=== PATIENT | female | born 1965 | race Caucasian/White ===

== ENCOUNTER 2017-04-19 00:19 | Emergency (ER) | payer OTHER ==
[2017-04-19 00:49] VITALS: TEMP 97.8; BMI 39.1
[2017-04-19] MEDS ORDERED: morphine CARPU-JECT 2 MG/1 ML DISP.SYRIN IVPUSH ONE (01:22)
[2017-04-19] MEDS ORDERED: morphine CARPU-JECT 4 MG/1 ML DISP.SYRIN ONE (01:36)
--- NOTE | 2017-04-19 01:41 | PDOC ---
History of Present Illness - General Chief Complaint: Pain Stated Complaint: PAIN Time Seen by Provider: 04/19/17 00:54 - History of Present Illness Initial Comments: 04/19/17 01:41 Patient is a 52 year old female with a history of asthma who presents with lower abdominal pain. She reports having mild abdominal cramping for several years, however over the past three weeks, it has been getting increasingly severe prompting her visit to the ED today. She reports that three weeks ago, she was seeing a sign out clerk and has been injecting herself with b12 shots in her abdomen. Since then she has been feeling increased bloating sensation and abdomen swelling as well as increased twisting/cramping pain in her lower abdomen spreading to her entire abdomen. Of note, she reports a history of a hysterectomy. She denies any nausea, vomiting, fevers, chills, chest pain, SOB , changes with urination, changes with bowel movements, and abnormal vaginal bleeding or discharge. Past History - Past Medical History Allergies/Adverse Reactions: Allergies Allergy/AdvReac Type Severity Reaction Status Date / Time Penicillins Allergy Verified 04/19/17 00:47 Home Medications: Ambulatory Orders Albuterol 0.083% Nebulizer Irasema [Ventolin 0.083% Nebulizer Soln -] 1 neb NEB Q6H PRN #1 box 11/06/13 Ibuprofen [Motrin -] 400 mg PO Q6H PRN #30 tablet 02/05/15 Albuterol Sulfate Inhaler - [Ventolin HFA Inhaler -] 1 - 2 inh PO DAILY Montelukast Na [Singulair -] 10 mg PO DAILY 11/07/16 Oxycodone HCl/Acetaminophen [Percocet 5-325 mg Tablet -] 1 combo PO Q6H PRN #8 tablet MDD 4 04/19/17 Anemia: No Asthma: Yes Cancer: No Cardiac Disorders: No CVA: No COPD: No CHF: No Dementia: No Diabetes: No GI Disorders: No Disorders: No HTN: No Hypercholesterolemia: No Liver Disease: No Psychiatric Problems: Yes (anxiety) Seizures: No Thyroid Disease: No - Surgical History Abdominal Surgery: No Appendectomy: No Cardiac Surgery: No Cholecystectomy: No Lung Surgery: No Neurologic Surgery: No Orthopedic Surgery: No - Immunization History Immunization Up to Date: Yes - Psycho/Social/Smoking Cessation Hx Anxiety: Yes Suicidal Ideation: No Smoking History: Never smoked Have you smoked in the past 12 months: No Number of Cigarettes Smoked Daily: 0 If you are a former smoker, when did you quit?: 9 YRS AGO Cigars Per Day: 0 Information on smoking cessation initiated: No Hx Alcohol Use: No Drug/Substance Use Hx: No Substance Use Type: None Hx Substance Use Treatment: No Review of Systems - Review of Systems Constitutional: No: Chills, Fever Respiratory: No: Cough, Shortness of Breath Cardiac (ROS): No: Chest Pain, Lightheadedness, Syncope ABD/GI: No: Constipated, Diarrhea, Nausea, Vomiting : No: Burning, Dysuria Integumentary: No: Rash Neurological: No: Headache, Tingling *Physical Exam - Vital Signs Last Vital Signs Temp Pulse Resp BP Pulse Ox 97.8 F 80 20 158/89 97 04/19/17 00:47 04/19/17 00:47 04/19/17 00:47 04/19/17 00:47 04/19/17 00:47 - Physical Exam Comments: 04/19/17 03:35 General Appearance: Nourished, and in Mild Distress HEENT: No Pharyngeal Erythema, Tonsillar Exudate, Tonsillar Erythema Respiratory/Chest: Lungs Clear, Normal Breath Sounds. No Crackles, Rales, Rhonchi, Wheezing Cardiovascular: Regular Rhythm, Regular Rate. No Murmur, Gallop/S3, Gallop/S4 Gastrointestinal/Abdominal: Normal Bowel Sounds, Soft, Tenderness to palpation in the lower abdomen worse in the LRQ and suprapubic region. Rebound noted on exam. No Hernia, Mass Integumentary: Normal Color, Dry, Warm Neurologic: Fully Oriented, Alert, Normal Mood/Affect, Normal Response ED Treatment Course - LABORATORY CBC & Chemistry Diagram: 04/19/17 01:46 04/19/17 01:46 Medical Decision Making - Medical Decision Making 04/19/17 03:37 Patient is a 52 year old female who presents with lower abdominal pain. Differential includes but is not limited to: Obstruction, illius, infectious, hernia, UTI, pylonephritis. We will obtain a set of labs including a cbc, cmp, UA, lipase. We will also get a ct abdomen pelvis to evaluate for pathology. 04/19/17 07:33 Patient's labs only show an elevated WBC to 12, but otherwise normal. CT abdomen preliminarily read by health administration teacher radiologist as large 17 x10 cm mass in the lower abdomen. 04/19/17 07:35 Patient signed out to Dr. Flowers. Pending admission vs. observation. Shoe Lay Out Planner consultation, US pelvis, CA125. *DC/Admit/Observation/Transfer Diagnosis at time of Disposition: Pelvic mass in female - Prescriptions Prescriptions: Oxycodone HCl/Acetaminophen [Percocet 5-325 mg Tablet -] 1 combo PO Q6H PRN #8 tablet MDD 4 PRN Reason: Pain - Referrals Referrals: Zach Rivas MD [Primary Care Provider] - Shaneka Simons MD [Staff Physician] - - Patient Instructions Additional Instructions: Please return to the ER if symptoms persist, worsen, or new symptoms arise. Please call Friday with Dr. Simons for follow up in her clinic. She will see you on Friday. Phone # is [phone]. - Attestations Physician Attestion: 04/19/17 18:57 I, Dr. Amadeo Jorgensen, attest that this document has been prepared under my direction and personally reviewed by me in its entirety. I further attest, that it accurately reflects all work, treatment, procedures and medical decision -making performed by me.
[2017-04-19 01:57] LABS: BASOPHIL 0.9 % (0-2.0); EOSINOPHIL 3.1 % (0-4.5); MCH 29.2 pg (25.7-33.7); MCHC 32.2 g/dl (32.0-36.0); MEAN CELL VOLUME 90.7 fl (80-96); MEAN PLT VOLUME 8.3 fl (7.5-11.1); NEUTROPHILS 69.4 % (42.8-82.8); PLATELET COUNT 304 K/MM3 (134-434); RDW 14.3 % (11.6-15.6); WHITE BLOOD COUNT 12.3 K/mm3 (4.0-10.0)
[2017-04-19 02:11] LABS: INR 1.04 (0.82-1.09); PROTHROMBIN TIME (PATIENT) 11.5 SEC (9.98-11.88)
[2017-04-19 02:24] LABS: AMYLASE 39 U/L (25-115)
[2017-04-19 02:28] LABS: ALBUMIN 3.5 g/dl (3.4-5.0); ALK PHOS 82 U/L (45-117); ANION GAP 8 (8-16); BILIRUBIN,TOTAL 0.3 mg/dL (0.2-1.0); CALCIUM 8.7 mg/dL (8.5-10.1); CO2 25 mmol/L (21-32); CREATININE 0.8 mg/dL (0.55-1.02); GLUCOSE,RANDOM 94 mg/dL (74-106); SGOT/AST 13 U/L (15-37); SGPT/ALT 11 U/L (12-78); TOT PROT 7.3 g/dl (6.4-8.2)
--- NOTE | 2017-04-19 06:42 | PDOC ---
Attending Attestation - Resident Resident Name: Amadeo Jorgensen - HPI HPI: 04/19/17 06:38 Pt comes with abdominal pain and swelling x 3 weeks. She states that 3 weeks ago she was placing vitamin B shots in her abdomen. She placed 6 shots over 6 days. However, she states that she has no fevers, no cellulitis, no diarrhea and no constipation. She has no pain after meals and she is able to eat normally without nausea or vomiting. Pt is not losing weight, rather gaining weight. She was told in the past that she has cystitis, and she complains of some burning on urination. - Physicial Exam PE: 04/19/17 06:40 Tense distended abdomen. Pain in all quadrants, primarily lower quadrants. Urinalysis pending - Medical Decision Making 04/19/17 06:41 Jyothi Alejandre Addendum: Apparently the patient has had a prior hysterectomy and therefore the previously mentioned pelvic mass suspected to represent a fibroid uterus therefore represents a large mass, suspicious for malignant neoplasm such as a sarcoma. THIS DOCUMENT HAS BEEN ELECTRONICALLY SIGNED Lloyd Wilburn MD 04/19/2017 06:29 SHARON Grimes Please call Imaging Legal Examiner [phone] ([phone]) with questions. PREVIOUS REPORT: Referring Physician : Sandra Stovall Patient Name: Jyothi Alejandre THIS IS A PRELIMINARYREPORT FROM IMAGING [facility] OPERATOR HELPER EXAM: CT abdomen and pelvis without contrast IMAGES: [id number] INDICATION: Rule out ileus or obstruction DATE OF SERVICE: 2017-04-19 05:08: 04.0 COMPARISON: none FINDINGS: Lung bases are clear. The visualized cardiac chambers are normal size and configuration. Normal unenhanced liver, gallbladder , pancreas, spleen, adrenal glands and kidneys. The stomach and abdominal small and large bowel are normal. There is no aortic aneurysm. There is no significant retroperitoneal lymphadenopathy. The pelvic small and large bowel are normal. The appendix is normal. There is a markedly enlarged heterogeneous uterus consistent with multiple fibroids measuring approximate 17.5 x 10.0 cm in diameter. No obvious adnexal masses. Urinary bladder is unremarkable. There is no pelvic free fluid. No discrete pelvic lymphadenopathy is identified. 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 04/19/17 20:19 SIGNED OUT TO THE DAY ER DOCTOR FOR SONO PELVIS AND ADMISSION TO VISUAL STYLIST VS OUTPATIENT WORKUP.
[2017-04-19] MEDS ORDERED: LORAZEPAM CARPU-JECT 2 MG/ML DISP.SYRIN IVPUSH ONE (06:56)
[2017-04-19] MEDS ORDERED: LORAZEPAM CARPU-JECT 2 MG/ML DISP.SYRIN ONE (07:51)
--- NOTE | 2017-04-19 09:54 | PDOC ---
*Physical Exam - Vital Signs Last Vital Signs Temp Pulse Resp BP Pulse Ox 97.8 F 80 20 158/89 97 04/19/17 00:47 04/19/17 00:47 04/19/17 00:47 04/19/17 00:47 04/19/17 00:47 <Jj Flowers - Last Filed: 04/19/17 09:39> - Vital Signs Last Vital Signs Temp Pulse Resp BP Pulse Ox 97.8 F 60 18 118/72 100 04/19/17 00:47 04/19/17 11:11 04/19/17 11:11 04/19/17 11:11 04/19/17 11:11 <Sandra Stovall - Last Filed: 04/19/17 21:21> ED Treatment Course - LABORATORY CBC & Chemistry Diagram: 04/19/17 01:46 04/19/17 01:46 - ADDITIONAL ORDERS Additional order review: Laboratory Results 04/19/17 04/19/17 04/19/17 01:46 01:46 01:46 INR Sodium 141 Potassium 3.8 Chloride 108 H Carbon Dioxide 25 Anion Gap 8 BUN 18 Creatinine 0.8 D Creat Clearance w eGFR > 60 Random Glucose 94 Calcium 8.7 Total Bilirubin 0.3 AST 13 L ALT 11 L D Alkaline Phosphatase 82 Total Protein 7.3 Albumin 3.5 Total Amylase 39 Lipase 159 Blood Type A POSITIVE Antibody Screen Negative 04/19/17 01:46 INR 1.04 Sodium Potassium Chloride Carbon Dioxide Anion Gap BUN Creatinine Creat Clearance w eGFR Random Glucose Calcium Total Bilirubin AST ALT Alkaline Phosphatase Total Protein Albumin Total Amylase Lipase Blood Type Antibody Screen 04/19/17 01:46 RBC 4.48 MCV 90.7 MCHC 32.2 RDW 14.3 MPV 8.3 Neutrophils % 69.4 Lymphocytes % 20.3 Monocytes % 6.3 Eosinophils % 3.1 Basophils % 0.9 - Medications Given in the ED: ED Medications Discontinued Medications Generic Name Dose Route Start Last Admin Trade Name Breana PRN Reason Stop Dose Admin Lorazepam 2 mg 04/19/17 06:56 04/19/17 07:52 Ativan Injection - IVPUSH 04/19/17 06:57 2 mg ONCE ONE Administration Morphine Sulfate 2 mg 04/19/17 01:22 04/19/17 01:50 Morphine Injection - IVPUSH 04/19/17 01:23 2 mg ONCE ONE Administration <Jj Flowers - Last Filed: 04/19/17 09:39> - LABORATORY CBC & Chemistry Diagram: 04/19/17 01:46 04/19/17 01:46 - ADDITIONAL ORDERS Additional order review: 04/19/17 01:46 RBC 4.48 MCV 90.7 MCHC 32.2 RDW 14.3 MPV 8.3 Neutrophils % 69.4 Lymphocytes % 20.3 Monocytes % 6.3 Eosinophils % 3.1 Basophils % 0.9 - RADIOLOGY Radiology Studies Ordered: Category Date Time Status ABDOMEN & PELVIS CT W/O CONTR [CT] Stat CT Scan 04/19/17 03:53 Completed PELVIS(OTHER) US [US] Stat Ultrasound 04/19/17 06:57 Completed - Medications Given in the ED: ED Medications Discontinued Medications Generic Name Dose Route Start Last Admin Trade Name Freq PRN Reason Stop Dose Admin Lorazepam 2 mg 04/19/17 06:56 04/19/17 07:52 Ativan Injection - IVPUSH 04/19/17 06:57 2 mg ONCE ONE Administration Morphine Sulfate 2 mg 04/19/17 01:22 04/19/17 01:50 Morphine Injection - IVPUSH 04/19/17 01:23 2 mg ONCE ONE Administration <Sandra Stovall - Last Filed: 04/19/17 21:21> Medical Decision Making - Medical Decision Making 04/19/17 09:39 Patient signed out to me by day team (Dr. Jorgensen). Patient is a 52F with no PMH who presents with nonspecific abdominal pain. She was found to have a heterogenous mass in her pelvis. Promotions Team Leader argon tester was called and will follow up with patient outpatient on Friday. Patient has been informed of this and is stable for discharge. 04/19/17 09:55 Patient's pain is being controlled. Patient states she is anxious. She is in mild distress because of the news. Dr. Lindsay and I have discussed the patient's follow up at length. She understands and agrees. <Jj Flowers - Last Filed: 04/19/17 09:39> *DC/Admit/Observation/Transfer - Discharge Dispostion Admit: No - Attestations Physician Attestion: 04/19/17 09:54 I, Dr. Jj Flowers, attest that this document has been prepared under my direction and personally reviewed by me in its entirety. I further attest, that it accurately reflects all work, treatment, procedures and medical decision -making performed by me. <Jj Flowers - Last Filed: 04/19/17 09:39> <Sandra Stovall - Last Filed: 04/19/17 21:21> Diagnosis at time of Disposition: Pelvic mass in female - Prescriptions Prescriptions: Oxycodone HCl/Acetaminophen [Percocet 5-325 mg Tablet -] 1 combo PO Q6H PRN #8 tablet MDD 4 PRN Reason: Pain - Referrals Referrals: Zach Rivas MD [Primary Care Provider] - Shaneka Simons MD [Staff Physician] - - Patient Instructions Additional Instructions: Please return to the ER if symptoms persist, worsen, or new symptoms arise. Please call Friday with Dr. Simons for follow up in her clinic. She will see you on Friday. Phone # is [phone].
[2017-04-19 11:12] VITALS: BP 118/72; PULSE 60
[2017-04-19] MEDS ORDERED: OXYCODONE/APAP 5/325MG COMBO TABLET PO ONE (11:15)
--- NOTE | 2017-04-21 09:29 | EKG ---
Test Reason : Blood Pressure : / mmHG Vent. Rate : 079 BPM Atrial Rate : 079 BPM P-R Int : 156 ms QRS Dur : 080 ms QT Int : 350 ms P-R-T Axes : 063 068 007 degrees QTc Int : 401 ms NORMAL SINUS RHYTHM WITH SINUS ARRHYTHMIA NORMAL ECG WHEN COMPARED WITH ECG OF 05-FEB-2015 02:03, NO SIGNIFICANT CHANGE WAS FOUND Confirmed by STEPHANIE WILEY MD ([id number]) on 04/21/2017 9:29:08 AM Referred By: Confirmed By:STEPHANIE WILEY MD
== END 2017-04-19 11:23 | disposition home or self-care (01) ==
LOC: JER 00:19
DX: R19.09 Other intra-abdominal and pelvic swelling, mass and lump (principal); J45.909 Unspecified asthma, uncomplicated; F41.9 Anxiety disorder, unspecified
CPT/HCPCS: 36415; 74176-TC; 76856-TC; 80053; 82150; 82378; 83690; 85025; 85610; 86304; 86850; 86900; 86901; 93005; 93010; 99284-25

== ENCOUNTER 2017-11-03 14:43 | Emergency (ER) | payer OTHER ==
[2017-11-03 15:31] VITALS: TEMP 98.4; BMI 39.6
--- NOTE | 2017-11-03 15:39 | PDOC ---
Rapid Medical Evaluation Chief Complaint: Pain Time Seen by Provider: 11/03/17 15:11 Medical Evaluation: Allergies Allergy/AdvReac Type Severity Reaction Status Date / Time Penicillins Allergy Verified 11/03/17 15:27 11/03/17 15:28 The patient presents with a chief complaint of: Left side pain. N/V/D.Hx of left mass removal from L kidney on 04/29/17. Still has kidney I have performed a brief in-person evaluation of this patient; Pertinent physical exam findings: ambulatory, in no respiratory distress. TTP of the L abdomen. I have ordered the following: CBC, CMP, PT/INR, lipase, UA, Upreg,Iv insert, CTAP with contrast, The patient will proceed to the ED for further evaluation.
[2017-11-03] MEDS ORDERED: SODIUM CHLORIDE 1,000 ML IV STA (15:41)
[2017-11-03 16:36] LABS: BASO % 0.4 % (0-2.0); HEMATOCRIT 42.5 % (32.4-45.2); HEMOGLOBIN 13.7 GM/dL (10.7-15.3); LYMPH % 9.4 % (8-40); MCH 28.3 pg (25.7-33.7); MCHC 32.3 g/dl (32.0-36.0); MEAN CELL VOLUME 87.6 fl (80-96); MEAN PLT VOLUME 8.3 fl (7.5-11.1); MONO % 4.6 % (3.8-10.2); NEUT % 84.6 % (42.8-82.8); PLATELET COUNT 351 K/MM3 (134-434); RBC 4.85 M/mm3 (3.60-5.2); RDW 14.4 % (11.6-15.6); WHITE BLOOD COUNT 12.9 K/mm3 (4.0-10.0)
[2017-11-03 16:40] LABS: URINE APPEARANCE CLEAR; URINE BILIRUBIN NEGATIVE (NEGATIVE); URINE BLOOD 3+ (NEGATIVE); URINE COLOR LT. YELLOW; URINE GLUCOSE (UA) NEGATIVE (NEGATIVE); URINE KETONE NEGATIVE (NEGATIVE); URINE LEUK ESTERASE NEGATIVE (NEGATIVE); URINE NITRITE NEGATIVE (NEGATIVE); URINE PROTEIN NEGATIVE (NEGATIVE); URINE UROBILINOGEN 0.2 mg/dL (0.2-1.0)
[2017-11-03 16:47] LABS: INR 1.04 (0.82-1.09); PROTHROMBIN TIME (PATIENT) 11.7 SEC (9.98-11.88)
[2017-11-03 17:01] LABS: ALBUMIN 3.9 g/dl (3.4-5.0); ALK PHOS 125 U/L (45-117); ANION GAP 5 (8-16); BILIRUBIN,TOTAL 0.2 mg/dL (0.2-1.0); BLOOD UREA NITROGEN 13 mg/dL (7-18); CALCIUM 8.8 mg/dL (8.5-10.1); CHLORIDE 108 mmol/L (98-107); CO2 30 mmol/L (21-32); CREATININE 0.7 mg/dL (0.55-1.02); GLUCOSE,RANDOM 92 mg/dL (74-106); POTASSIUM 4.4 mmol/L (3.5-5.1); SGOT/AST 15 U/L (15-37); SGPT/ALT 18 U/L (12-78); SODIUM 143 mmol/L (136-145); TOT PROT 7.8 g/dl (6.4-8.2)
[2017-11-03 17:14] LABS: URINE HYALINE CAST 1 /lpf; URINE MUCUS FEW
--- NOTE | 2017-11-03 17:39 | PDOC ---
History of Present Illness - General History Source: Patient Exam Limitations: No Limitations - History of Present Illness Initial Comments: 11/03/17 18:02 The patient is a 52 year old female who is s/p hysterectomy several years ago, s /p cystectomy with b/l stent placement 04/2017 who presents to the ED complaining of left lateral pain that began this morning with associated nausea , NBNB x 4, and loose stools x 5 today. She states she had similar pain several weeks ago and was sent for a CT of the abdomen with contrast approximately 2 weeks ago. She is unsure of the results. The patient denies any fever or chills. She denies any chest pain or shortness of breath. She denies any sick contacts or recent travel. LATEX CASTER: Dr. Ye Wiggins <Maile Schafer - Last Filed: 11/03/17 18:02> <Alee Liu - Last Filed: 11/03/17 19:29> - General Chief Complaint: Pain Stated Complaint: POST OP PAIN Time Seen by Provider: 11/03/17 15:11 Past History <Maile Schafer - Last Filed: 11/03/17 18:02> - Past Medical History Anemia: No Asthma: Yes Cancer: No Cardiac Disorders: No CVA: No COPD: No CHF: No Dementia: No Diabetes: No GI Disorders: No Disorders: No HTN: Yes Hypercholesterolemia: No Liver Disease: No Psychiatric Problems: Yes (anxiety) Seizures: No Thyroid Disease: No - Surgical History Abdominal Surgery: Yes (ABD HERNIA,) Appendectomy: No Cardiac Surgery: No Cholecystectomy: No Lung Surgery: No Neurologic Surgery: No Orthopedic Surgery: No - Immunization History Immunization Up to Date: Yes - Suicide/Smoking/Psychosocial Hx Smoking History: Never smoked Have you smoked in the past 12 months: No Number of Cigarettes Smoked Daily: 0 If you are a former smoker, when did you quit?: 9 YRS AGO Cigars Per Day: 0 Information on smoking cessation initiated: No Hx Alcohol Use: No Drug/Substance Use Hx: No Substance Use Type: None Hx Substance Use Treatment: No <Alee Liu - Last Filed: 11/03/17 19:29> - Past Medical History Allergies/Adverse Reactions: Allergies Allergy/AdvReac Type Severity Reaction Status Date / Time Penicillins Allergy Verified 11/03/17 15:27 Home Medications: Ambulatory Orders Albuterol 0.083% Nebulizer Irasema [Ventolin 0.083% Nebulizer Soln -] 1 neb NEB Q6H PRN #1 box 11/06/13 Albuterol Sulfate Inhaler - [Ventolin HFA Inhaler -] 1 - 2 inh PO DAILY Montelukast Na [Singulair -] 10 mg PO DAILY 11/07/16 Acetaminophen W/ Codeine #3 [Tylenol # 3 -] 1 tab PO Q6H PRN 11/03/17 Review of Systems - Review of Systems Able to Perform ROS?: Yes Comments:: 11/03/17 18:08 GENERAL/CONSTITUTIONAL: No fever or chills. No weakness. HEAD, EYES, EARS, NOSE AND THROAT: No change in vision. No ear pain or discharge. No sore throat. CARDIOVASCULAR: No chest pain or shortness of breath. RESPIRATORY: No cough, wheezing, or hemoptysis. GASTROINTESTINAL: +LUQ pain, nausea, NBNB vomiting, diarrhea. No constipation. GENITOURINARY: No dysuria, frequency, or change in urination. MUSCULOSKELETAL: No joint or muscle swelling or pain. No neck or back pain. SKIN: No rash NEUROLOGIC: No headache, vertigo, loss of consciousness, or change in strength/ sensation. ENDOCRINE: No increased thirst. No abnormal weight change. HEMATOLOGIC/LYMPHATIC: No anemia, easy bleeding, or history of blood clots. ALLERGIC/IMMUNOLOGIC: No hives or skin allergy. <Maile Schafer - Last Filed: 11/03/17 18:02> *Physical Exam - Vital Signs Last Vital Signs Temp Pulse Resp BP Pulse Ox 98.4 F 83 18 118/81 100 11/03/17 15:28 11/03/17 15:28 11/03/17 15:28 11/03/17 15:28 11/03/17 15:28 - Physical Exam Comments: 11/03/17 18:10 GENERAL: Awake, alert, and fully oriented, in no acute distress HEAD: No signs of trauma EYES: PERRLA, EOMI, sclera anicteric, conjunctiva clear ENT: Auricles normal inspection, hearing grossly normal, nares patent, oropharynx clear without exudates. Moist mucosa NECK: Normal ROM, supple, no lymphadenopathy, JVD, or masses LUNGS: Breath sounds equal, clear to auscultation bilaterally. No wheezes, and no crackles HEART: Regular rate and rhythm, normal S1 and S2, no murmurs, rubs or gallops ABDOMEN: +Mild left lateral abdominal pain. Soft, normoactive bowel sounds. No guarding, no rebound. No masses EXTREMITIES: Normal range of motion, no edema. No clubbing or cyanosis. No cords, erythema, or tenderness NEUROLOGICAL: Cranial nerves II through XII grossly intact. Normal speech, normal gait SKIN: Warm, Dry, normal turgor, no rashes or lesions noted. <Maile Schafer - Last Filed: 11/03/17 18:02> - Vital Signs Last Vital Signs Temp Pulse Resp BP Pulse Ox 98.4 F 83 18 118/81 100 11/03/17 15:28 11/03/17 15:28 11/03/17 15:28 11/03/17 15:28 11/03/17 15:28 <Alee Liu - Last Filed: 11/03/17 19:29> ED Treatment Course - LABORATORY CBC & Chemistry Diagram: 11/03/17 16:23 11/03/17 16:23 - ADDITIONAL ORDERS Additional order review: Laboratory Results 11/03/17 11/03/17 11/03/17 16:27 16:27 16:25 PT with INR INR Sodium Potassium Chloride Carbon Dioxide Anion Gap BUN Creatinine Creat Clearance w eGFR Random Glucose Calcium Total Bilirubin AST ALT Alkaline Phosphatase Total Protein Albumin Lipase 105 Urine Color Lt. yellow Urine Appearance Clear Urine pH 6.0 Ur Specific [place] 1.010 Urine Protein Negative Urine Glucose (UA) Negative Urine Ketones Negative Urine Blood 3+ H Urine Nitrite Negative Urine Bilirubin Negative Urine Urobilinogen 0.2 Ur Leukocyte Esterase Negative Urine WBC (Auto) 2 Urine RBC (Auto) 18 Hyaline Casts 1 Urine Mucus Few Urine HCG, Qual Negative 11/03/17 11/03/17 16:23 16:23 PT with INR 11.70 INR 1.04 Sodium 143 Potassium 4.4 Chloride 108 H Carbon Dioxide 30 Anion Gap 5 L BUN 13 Creatinine 0.7 Creat Clearance w eGFR > 60 Random Glucose 92 Calcium 8.8 Total Bilirubin 0.2 D AST 15 ALT 18 Alkaline Phosphatase 125 H Total Protein 7.8 Albumin 3.9 Lipase Urine Color Urine Appearance Urine pH Ur Specific [place] Urine Protein Urine Glucose (UA) Urine Ketones Urine Blood Urine Nitrite Urine Bilirubin Urine Urobilinogen Ur Leukocyte Esterase Urine WBC (Auto) Urine RBC (Auto) Hyaline Casts Urine Mucus Urine HCG, Qual 11/03/17 16:23 RBC 4.85 MCV 87.6 MCHC 32.3 RDW 14.4 MPV 8.3 Neutrophils % 84.6 H D Lymphocytes % 9.4 D Monocytes % 4.6 Eosinophils % 1.0 Basophils % 0.4 - Medications Given in the ED: ED Medications Discontinued Medications Generic Name Dose Route Start Last Admin Trade Name Breana PRN Reason Stop Dose Admin Sodium Chloride 1,000 mls @ 1,000 mls/hr 11/03/17 15:41 11/03/17 16:36 Normal Saline - IV 11/03/17 16:40 1,000 mls/hr ASDIR STA Administration <Maile Schafer - Last Filed: 11/03/17 18:02> - LABORATORY CBC & Chemistry Diagram: 11/03/17 16:23 11/03/17 16:23 - ADDITIONAL ORDERS Additional order review: Laboratory Results 11/03/17 11/03/17 11/03/17 16:27 16:27 16:25 PT with INR INR Sodium Potassium Chloride Carbon Dioxide Anion Gap BUN Creatinine Creat Clearance w eGFR Random Glucose Calcium Total Bilirubin AST ALT Alkaline Phosphatase Total Protein Albumin Lipase 105 Urine Color Lt. yellow Urine Appearance Clear Urine pH 6.0 Ur Specific [place] 1.010 Urine Protein Negative Urine Glucose (UA) Negative Urine Ketones Negative Urine Blood 3+ H Urine Nitrite Negative Urine Bilirubin Negative Urine Urobilinogen 0.2 Ur Leukocyte Esterase Negative Urine WBC (Auto) 2 Urine RBC (Auto) 18 Hyaline Casts 1 Urine Mucus Few Urine HCG, Qual Negative 11/03/17 11/03/17 16:23 16:23 PT with INR 11.70 INR 1.04 Sodium 143 Potassium 4.4 Chloride 108 H Carbon Dioxide 30 Anion Gap 5 L BUN 13 Creatinine 0.7 Creat Clearance w eGFR > 60 Random Glucose 92 Calcium 8.8 Total Bilirubin 0.2 D AST 15 ALT 18 Alkaline Phosphatase 125 H Total Protein 7.8 Albumin 3.9 Lipase Urine Color Urine Appearance Urine pH Ur Specific [place] Urine Protein Urine Glucose (UA) Urine Ketones Urine Blood Urine Nitrite Urine Bilirubin Urine Urobilinogen Ur Leukocyte Esterase Urine WBC (Auto) Urine RBC (Auto) Hyaline Casts Urine Mucus Urine HCG, Qual 11/03/17 16:23 RBC 4.85 MCV 87.6 MCHC 32.3 RDW 14.4 MPV 8.3 Neutrophils % 84.6 H D Lymphocytes % 9.4 D Monocytes % 4.6 Eosinophils % 1.0 Basophils % 0.4 - Medications Given in the ED: ED Medications Discontinued Medications Generic Name Dose Route Start Last Admin Trade Name Freq PRN Reason Stop Dose Admin Sodium Chloride 1,000 mls @ 1,000 mls/hr 11/03/17 15:41 11/03/17 16:36 Normal Saline - IV 11/03/17 16:40 1,000 mls/hr ASDIR STA Administration <Alee Liu - Last Filed: 11/03/17 19:29> Medical Decision Making - Medical Decision Making 11/03/17 17:[address] Rosen, DR Tru Belcher-Feliciano's associate not a cancer pt, mass was all benign fibroids -ct abd/pel with constrast forllq pain -c/o loose oct 24 ct w constrast -no smo noemal appe ,commercial underwriter inflammation,liver,gb,normal, -normal ct scan 11/03/17 18:51 CAT scan of abdomen and pelvis without any contrast showed a 2 mm distal left ureteral stone noted at the UVJ with some mild hydronephrosis She is status post interval resection of a large pelvic mass lesion. She is status post hysterectomy. Mild diminished signs of nonspecific intraperitoneal soft tissue nodule seen on the right lateral abdomen and putting the inferior border of the right measuring 1.5 cm Impression kidney stone, mild hydro-on the left plan Flomax, NSAIDs, urology follow-up 11/03/17 19:15 Patient already has a urologist, she has been seen by Dr. Lau in the past and she will follow-up with him <Alee Liu - Last Filed: 11/03/17 19:29> *DC/Admit/Observation/Transfer - Attestations Scribe Attestion: 11/03/17 18:12 Documentation prepared by Maile Schafer, acting as medical assembler for Alee Liu MD. <Maile Schafer - Last Filed: 11/03/17 18:02> <Alee Liu - Last Filed: 11/03/17 19:29> Diagnosis at time of Disposition: Kidney stone on left side - Discharge Dispostion Disposition: HOME Condition at time of disposition: Stable - Referrals Referrals: Zach Rivas MD [Primary Care Provider] - Any Villarreal MD [Staff Physician] - - Patient Instructions Printed Discharge Instructions: Hydronephrosis -- Adult, DI for Kidney Stones Additional Instructions: please pear picker your medications at your pharmacy followup with Dr Villarreal - Post Discharge Activity
[2017-11-03] MEDS ORDERED: TAMSULOSIN HCL 0.4 MG CAP.ER.24H (FP) PO ONE (18:51)
[2017-11-03] MEDS ORDERED: KETOROLAC TROMETHAMINE 30 MG/1 ML VIAL IVPUSH ONE (18:51)
[2017-11-03] MEDS ORDERED: TAMSULOSIN HCL 0.4 MG CAP.ER.24H (FP) ONE (18:57)
[2017-11-03] MEDS ORDERED: KETOROLAC TROMETHAMINE 30 MG/1 ML VIAL ONE (18:58)
[2017-11-03 19:47] VITALS: BP 138/86; PULSE 67
== END 2017-11-03 19:47 | disposition home or self-care (01) ==
LOC: JER 14:43
PROC: 3E0337Z Introduction of Electrolytic and Water Balance Substance into Peripheral Vein, Percutaneous Approach (ICD-10-PCS; principal; 2017-11-03)
PROC: 3E0333Z Introduction of Anti-inflammatory into Peripheral Vein, Percutaneous Approach (ICD-10-PCS; 2017-11-03)
DX: N13.2 Hydronephrosis with renal and ureteral calculous obstruction (principal)
CPT/HCPCS: 36415; 74176-TC; 80053; 81003; 81015; 83690; 84703; 85025; 85610; 87086; 96361; 96374; 99283-25

== ENCOUNTER 2021-01-20 19:41 | Emergency (ER) | payer OTHER ==
[2021-01-20 19:46] VITALS: TEMP 97; BMI 40.4
[2021-01-20 20:47] LABS: EPI CELLS 3 /uL (0-25.1); HYALINE CASTS 0 /uL (0-3.1); URINE APPEARANCE CLEAR; URINE BACTERIA 75 /uL (0-1359); URINE BILIRUBIN NEGATIVE (NEGATIVE); URINE COLOR YELLOW; URINE GLUCOSE (UA) NEGATIVE (NEGATIVE); URINE KETONE NEGATIVE (NEGATIVE); URINE LEUK ESTERASE NEGATIVE (NEGATIVE); URINE NITRITE NEGATIVE (NEGATIVE); URINE PROTEIN NEGATIVE (NEGATIVE); URINE RBC 25 /uL (0-23.9); URINE UROBILINOGEN 0.2 mg/dL (0.2-1.0); URINE WBC 1 /uL (0-25.8)
[2021-01-20] MEDS ORDERED: ONDANSETRON 4 MG/2 ML VIAL IVPUSH ONE (20:47)
[2021-01-20] MEDS ORDERED: morphine CARPU-JECT 2 MG/1 ML DISP.SYRIN IVPUSH ONE (20:47)
[2021-01-20] MEDS ORDERED: morphine SULFATE 4 MG/ML VIAL ONE (20:51)
[2021-01-20] MEDS ORDERED: ONDANSETRON 4 MG/2 ML VIAL ONE (20:51)
[2021-01-20 21:14] LABS: BASO % 0.9 % (0-2.0); EOS % 3.1 % (0-4.5); HEMATOCRIT 42.3 % (32.4-45.2); LYMPH % 20.9 % (8-40); MCH 29.6 pg (25.7-33.7); MCHC 33.2 g/dl (32.0-36.0); MEAN CELL VOLUME 89.1 fl (80-96); MONO % 5.4 % (3.8-10.2); NEUT % 69.7 % (42.8-82.8); PLATELET COUNT 322 K/MM3 (134-434); RBC 4.74 M/mm3 (3.60-5.2); RDW 15.4 % (11.6-15.6); WHITE BLOOD COUNT 10.3 K/mm3 (4.0-10.0)
[2021-01-20 21:35] LABS: ALBUMIN 3.8 g/dl (3.4-5.0); CALCIUM 9.3 mg/dL (8.5-10.1)
[2021-01-20 21:36] LABS: BLOOD UREA NITROGEN 15.7 mg/dL (7-18)
[2021-01-20 21:39] LABS: CREATININE 0.7 mg/dL (0.55-1.3)
[2021-01-20 21:40] LABS: BILIRUBIN,TOTAL 0.5 mg/dL (0.2-1); TOT PROT 7.9 g/dl (6.4-8.2)
[2021-01-20] MEDS ORDERED: KETOROLAC TROMETHAMINE 30 MG/1 ML VIAL IVPUSH ONE (22:24)
[2021-01-20] MEDS ORDERED: KETOROLAC TROMETHAMINE 30 MG/1 ML VIAL ONE (22:29)
[2021-01-20 22:45] VITALS: BP 144/80; PULSE 82
== END 2021-01-20 22:45 | disposition home or self-care (01) ==
LOC: JER 19:41
PROC: 3E033NZ Introduction of Analgesics, Hypnotics, Sedatives into Peripheral Vein, Percutaneous Approach (ICD-10-PCS; principal; 2021-01-20)
PROC: 3E033GC Introduction of Other Therapeutic Substance into Peripheral Vein, Percutaneous Approach (ICD-10-PCS; 2021-01-20)
PROC: 3E0333Z Introduction of Anti-inflammatory into Peripheral Vein, Percutaneous Approach (ICD-10-PCS; 2021-01-20)
DX: N20.0 Calculus of kidney (principal)
CPT/HCPCS: 36415; 74176-TC; 80053; 81003; 85025; 87086; 99285-25

== ENCOUNTER 2023-03-13 14:58 | Emergency (ER) | payer OTHER ==
[2023-03-13 15:20] VITALS: BP 173/94; PULSE 86; RESP 18; TEMP 98.5; BMI 42.2
[2023-03-13 15:34] LABS: HEMATOCRIT 44.9 % (32.4-45.2); HEMOGLOBIN 14.9 G/dL (10.7-15.3); MCH 30.5 pg (25.7-33.7); MCHC 33.3 g/dl (32.0-36.0); MEAN CELL VOLUME 91.9 fl (80-96); MEAN PLT VOLUME 8.8 fl (7.5-11.1); RBC 4.89 10^6/uL (3.60-5.2); RDW 14.5 % (11.6-15.6); WHITE BLOOD COUNT 8.9 10^3/uL (4.0-10.8)
[2023-03-13 16:01] LABS: ALBUMIN 4.3 g/dl (3.4-5.0); BILIRUBIN,TOTAL 0.5 mg/dl (0.2-1); BLOOD UREA NITROGEN 13.2 mg/dl (7-18); CALCIUM 9.2 mg/dl (8.5-10.1); CREATININE 0.7 mg/dl (0.6-1.3); SGOT/AST 23.7 U/L (15-37); SGPT/ALT 16.7 U/L (7-52); TOT PROT 7.2 g/dl (6.4-8.2)
[2023-03-13 16:40] LABS: PLATELET ESTIMATE ADEQUATE
== END 2023-03-13 17:19 | disposition home or self-care (01) ==
LOC: FER 14:58
DX: R20.0 Anesthesia of skin (principal)
CPT/HCPCS: 36415; 70450-TC; 80053; 85027; 99284-25

== ENCOUNTER 2023-10-13 18:26 | Emergency (ER) | payer OTHER ==
[2023-10-13 18:39] VITALS: BP 135/63; PULSE 86; RESP 21; TEMP 97.9; BMI 39.6
[2023-10-13] MEDS ORDERED: diazePAM 5 MG TABLET PO ONE (19:39)
[2023-10-13] MEDS ORDERED: LIDOCAINE 5% TOPICAL PATCH TP ONE (19:40)
[2023-10-13] MEDS ORDERED: IBUPROFEN 600 MG TABLET (FP) PO ONE (19:41)
[2023-10-13] MEDS ORDERED: diazePAM 5 MG TABLET ONE (19:41)
[2023-10-13] MEDS ORDERED: LIDOCAINE 4% PATCH TP ONE (19:42)
[2023-10-13] MEDS ORDERED: KETOROLAC TROMETHAMINE 30 MG/1 ML VIAL IM ONE (19:59)
[2023-10-13] MEDS ORDERED: KETOROLAC TROMETHAMINE 30 MG/1 ML VIAL ONE (20:04)
[2023-10-13] MEDS ORDERED: LIDOCAINE PATCH REMOVAL MC SCH (22:00)
== END 2023-10-13 21:51 | disposition home or self-care (01) ==
LOC: JER 18:26
PROC: 3E0233Z Introduction of Anti-inflammatory into Muscle, Percutaneous Approach (ICD-10-PCS; principal; 2023-10-13)
DX: M79.661 Pain in right lower leg (principal); M79.662 Pain in left lower leg
CPT/HCPCS: 99284-25

== ENCOUNTER 2024-05-20 13:37 | Emergency (ER) | payer OTHER ==
[2024-05-20 14:25] LABS: HEMATOCRIT 47.5 % (32.4-45.2); HEMOGLOBIN 15.2 G/dL (10.7-15.3); MCH 29.1 pg (25.7-33.7); MCHC 31.9 g/dl (32.0-36.0); MEAN CELL VOLUME 91.1 fl (80-96); MEAN PLT VOLUME 8.7 fl (7.5-11.1); RBC 5.21 10^6/uL (3.60-5.2); RDW 14.5 % (11.6-15.6); WHITE BLOOD COUNT 8.8 10^3/uL (4.0-10.8)
[2024-05-20 14:34] LABS: EPITHELIAL CELLS 0-5 /hpf
[2024-05-20 14:43] LABS: PLATELET ESTIMATE ADEQUATE
[2024-05-20 14:45] LABS: ALBUMIN 4.1 g/dl (3.4-5.0); ALK PHOS 102 U/L (45-117); ANION GAP 7 mmol/L (4-13); BILIRUBIN,TOTAL 0.4 mg/dl (0.2-1); CALCIUM 8.9 mg/dl (8.5-10.1); CHLORIDE 104 mmol/L (98-107); CO2 28 mmol/L (21-32); CREATININE 0.7 mg/dl (0.6-1.3); GLUCOSE,RANDOM 74 mg/dl (74-106); POTASSIUM 3.8 mmol/L (3.5-5.1); SGOT/AST 15 U/L (15-37); SGPT/ALT 11 U/L (7-52); SODIUM 139 mmol/L (136-145); TOT PROT 7.5 g/dl (6.4-8.2)
[2024-05-20 14:47] VITALS: BP 167/86; PULSE 92; RESP 20; TEMP 97.5; BMI 36.8
[2024-05-20] MEDS ORDERED: KETOROLAC TROMETHAMINE 30 MG/1 ML VIAL ONE (15:21)
[2024-05-20] MEDS ORDERED: ONDANSETRON 4 MG/2 ML VIAL ONE (15:21)
[2024-05-20] MEDS: KETOROLAC TROMETHAMINE 30 MG/1 ML VIAL IVPUSH ONE (15:24)
[2024-05-20] MEDS: ONDANSETRON 4 MG/2 ML VIAL IVPUSH ONE (15:24)
== END 2024-05-20 19:01 | disposition home or self-care (01) ==
LOC: FER 13:37
PROC: 3E033GC Introduction of Other Therapeutic Substance into Peripheral Vein, Percutaneous Approach (ICD-10-PCS; principal; 2024-05-20)
PROC: 3E0333Z Introduction of Anti-inflammatory into Peripheral Vein, Percutaneous Approach (ICD-10-PCS; 2024-05-20)
DX: M54.50 Low back pain, unspecified (principal); R31.9 Hematuria, unspecified; K76.89 Other specified diseases of liver; N28.1 Cyst of kidney, acquired; R10.9 Unspecified abdominal pain
CPT/HCPCS: 36415; 74176-TC; 76705-TC; 76775-TC; 80053; 81003; 81015; 83690; 85027; 87086; 93005; 99285-25

== ENCOUNTER 2024-07-04 12:42 | Emergency (ER) | payer OTHER ==
[2024-07-04 12:58] VITALS: BP 161/76; PULSE 101; RESP 18; TEMP 98.1; BMI 39.6
[2024-07-04] MEDS ORDERED: ACETAMINOPHEN 325 MG TABLET (FP) ONE ×2 (13:14→13:18)
[2024-07-04] MEDS: ACETAMINOPHEN 325 MG TABLET (FP) PO ONE (13:19)
== END 2024-07-04 15:41 | disposition home or self-care (01) ==
LOC: FER 12:42
DX: M25.511 Pain in right shoulder (principal); R07.89 Other chest pain; M25.571 Pain in right ankle and joints of right foot; Y04.8XXA Assault by other bodily force, initial encounter
CPT/HCPCS: 71046-TC-FY; 73030-TC-RT-FY; 73590-TC-RT-FY; 73610-TC-RT-FY; 73630-TC-RT-FY; 99284-25

== ENCOUNTER 2024-07-27 21:33 | Emergency (ER) | payer OTHER ==
[2024-07-27 21:39] VITALS: TEMP 97.8; BMI 40.6
[2024-07-27] MEDS ORDERED: ONDANSETRON *ODT* 4 MG TABLET ONE (22:51)
[2024-07-27] MEDS ORDERED: ACETAMINOPHEN 325 MG TABLET (FP) ONE (22:51)
[2024-07-27] MEDS: ONDANSETRON *ODT* 4 MG TABLET SL ONE (22:58)
[2024-07-27] MEDS: ACETAMINOPHEN 500 MG TABLET (FP) PO ONE (22:58)
[2024-07-27 23:04] LABS: BASO % 0.9 % (0-2.0); EOS % 2.7 % (0-4.5); HEMATOCRIT 43.2 % (32.4-45.2); HEMOGLOBIN 14.3 GM/dL (10.7-15.3); LYMPH % 19.1 % (8-40); MCH 29.4 pg (25.7-33.7); MCHC 33.1 g/dl (32.0-36.0); MEAN CELL VOLUME 88.8 fl (80-96); MONO % 4.2 % (3.8-10.2); NEUT % 73.1 % (42.8-82.8); PLATELET COUNT 367 10^3/uL (134-434); RBC 4.87 M/mm3 (3.60-5.2); RDW 14.2 % (11.6-15.6); WHITE BLOOD COUNT 10.9 K/mm3 (4.0-10.0)
[2024-07-27] MEDS ORDERED: METHOCARBAMOL 500 MG TABLET ONE (23:14)
[2024-07-27] MEDS: METHOCARBAMOL 500 MG TABLET PO ONE (23:17)
[2024-07-27 23:29] LABS: POTASSIUM 4.5 mmol/L (3.5-5.1)
[2024-07-27 23:31] LABS: ALBUMIN 3.8 g/dl (3.4-5.0); CALCIUM 9.6 mg/dL (8.5-10.1)
[2024-07-27 23:32] LABS: BLOOD UREA NITROGEN 15.1 mg/dL (7-18)
[2024-07-27 23:35] LABS: CREATININE 0.8 mg/dL (0.55-1.3)
[2024-07-27 23:36] LABS: BILIRUBIN,TOTAL 0.4 mg/dL (0.2-1); TOT PROT 7.9 g/dl (6.4-8.2)
[2024-07-28] MEDS ORDERED: KETOROLAC TROMETHAMINE 15 MG/ML VIAL ONE (00:32)
[2024-07-28] MEDS: KETOROLAC TROMETHAMINE 15 MG/ML VIAL IVPUSH ONE (00:34)
[2024-07-28 01:28] VITALS: BP 175/87; PULSE 79; RESP 16
== END 2024-07-28 01:29 | disposition home or self-care (01) ==
LOC: JER 21:33
PROC: 3E0333Z Introduction of Anti-inflammatory into Peripheral Vein, Percutaneous Approach (ICD-10-PCS; principal; 2024-07-28)
DX: R07.89 Other chest pain (principal); F41.9 Anxiety disorder, unspecified; R11.2 Nausea with vomiting, unspecified; R05.9 Cough, unspecified; R68.83 Chills (without fever); Y04.8XXA Assault by other bodily force, initial encounter
CPT/HCPCS: 36415; 71045-TC-FY; 80053; 84484; 85025; 93005; 93010; 99285-25; Q0162